=== PATIENT | female | born 1965 | race Caucasian/White ===

== ENCOUNTER 2016-10-05 08:03 | Day surgery (SDC) | payer BC ==
[2016-09-30 12:12] VITALS: BMI 24.7
[2016-10-05 08:35] VITALS: RESP 16; TEMP 97.7
[2016-10-05] MEDS ORDERED: LIDOCAINE 1% 20 ML VIAL (10MG/ML) FOR IV START SQ ONE (08:35)
[2016-10-05] MEDS ORDERED: LACTATED RINGERS 1,000 ML IV ONE (08:36)
[2016-10-05] MEDS ORDERED: MIDAZOLAM 2 MG/2 ML VIAL ONE (09:13)
[2016-10-05] MEDS ORDERED: TRIAMCINOLONE ACETONIDE 40 MG/ML 1 ML VIAL ONE (09:13)
[2016-10-05] MEDS ORDERED: BUPIVACAINE (PF) 0.75% 30 ML VIAL ONE (09:13)
[2016-10-05] MEDS ORDERED: fentaNYL (PF) 50 MCG/ML 2 ML AMP ONE (09:13)
[2016-10-05] MEDS ORDERED: IOHEXOL 180 MG/ML 1 ML ML ONE (09:13)
[2016-10-05] MEDS ORDERED: IV FLUID CONTINUATION 1,000 ML IV ONE ×2 (09:46)
--- NOTE | 2016-10-05 10:03 | FL ---
EXAMINATION TYPE: FL guided pain mgmt statistic DATE OF EXAM: 10/05/2016 9:46 AM HISTORY: Flouroscopy time 16 seconds of fluoroscopy provided. IMPRESSION: 1. Fluoroscopy time.
[2016-10-05 10:07] VITALS: BP 130/81; PULSE 67
--- NOTE | 2016-10-05 12:09 | P.PCN ---
Date of Procedure: 10/05/16 Procedure(s) Performed: PROCEDURE: Bilateral shoulder joint ( intra-articular ) steroid injection under fluoroscopy PREOPERATIVE DIAGNOSIS: Bilateral shoulder arthralgia POSTOPERATIVE DIAGNOSIS: Bilateral shoulder arth ANESTHESIA: Conscious sedation. Versed 2 mg and fentanyl 100 g EBL: None. COMPLICATIONS: None. IV FLUIDS: 100 ml of Normal Saline PROCEDURE INDICATION: Bilateral shoulder pain unresponsive to conservative treatment, patient had excellent pain relief after the steroid injection in the joint done in the past PROCEDURE DESCRIPTION: The patient was seen and identified in the preoperative area. Risks, benefits, complications, and alternatives were discussed with the patient. The patient agreed to proceed with the procedure and signed the consent. The patient was placed in the prone position on the procedure table and the right shoulder was prepped and draped in the usual sterile fashion. We used sterile gloves for the procedure. The medial joint space was identified by fluoroscopy. Block solution was prepared with 40 mg of Kenalog in 5 mL of 0.75% bupivacaine preservative-free. A 22-gauge needle was advanced through the aforementioned site into the intraarticular space, and after negative aspiration , 5 mL of block solution was injected. This same procedure was repeated for the left joint , and after we finish injection in both joints the Skin was cleansed, and bandage was applied. DISPOSITION / PLANS: The patient was taken back to recovery room in a stable position. . Patient was discharged from the recovery room, accompanied by an adult, after meeting discharge criteria. Home discharge instructions were given to the patient. The patient was reexamined prior to discharge. The patient will schedule a follow up visit in the clinic in 2-4 weeks.
== END 2016-10-05 10:18 | disposition home or self-care (01) ==
LOC: ORPAIN 08:03
PROVIDERS: ATTEND Specialist
DX: M25.512 Pain in left shoulder (principal); M25.511 Pain in right shoulder; Z88.0 Allergy status to penicillin
CPT/HCPCS: 20610; J2250; J3301; Q9965; J3010

== ENCOUNTER → 2016-12-08 | Outpatient (CLI) | payer BC ==
[2016-12-08 11:53] VITALS: BP 118/66; PULSE 74; RESP 16; TEMP 98
--- NOTE | 2016-12-08 12:18 | P.PN ---
Progress Note - Text Patient returns for followup for chronic back and shoulder pain with some back pain radiating to legs. Patient recently underwent shoulder bursa injection, which gave her little to no relief. Patient previously underwent bilateral shoulder joint injection in August 2015 which began to wear off approximately two months ago. Patient continues on tramadol and Zanaflex medications for pain with some relief. Patient states that Zanaflex is making her sleepy and is not helping with pain. Today, pt denies new-onset weakness, bowel/bladder incontinence, or any other signs or symptoms of cauda equina syndrome. There are no signs of acute intoxication, and no indications of medication diversion or overuse. In addition to above, 13-point review of systems is also negative for chest pain , shortness of breath, changes in vision, changes in hearing, new onset weakness , abdominal pain, diarrhea, extreme fatigue, malaise, fever, skin changes, homicidal or suicidal ideation, or bowel or bladder incontinence. Vital Signs: Reviewed in EMR Gen: WDWN, AAOx3, NAD HEENT: NCAT, EOMI, hearing grossly normal Pulm: resp unlabored Abd: soft, NT, ND Neck: supple, trachea midline Upper extremity: decreased shoulder abduction ROM bilateral secondary to pain ROM in flexion lumbar spine: reduced ROM in extension lumbar spine: reduced Lumbar paravertebral tenderness: + Facet loading: ++ bilateral SI joint tenderness: + David's test: + Straight leg raise: neg bilateral Neuro: CN II-XII grossly intact, muscle strength lower extremities PRESERVED Imaging: Reviewed in EMR Assessment: 1. shoulder OA 2. lumbar spondylosis without myelopathy 3. chronic pain syndrome Plan: 1. Explanation: Opioid and psychological risk scores were reviewed. Diagnoses , prognoses, and multiple treatment options including but not limited to physical therapy, interventional therapies, adjuvant medical therapies, narcotic medication therapies, and surgery were discussed with the patient and all questions were answered to the patient's satisfaction. 2. Opioid agreement: Patient has previously signed narcotic agreement, and was orally counseled to not overuse, abuse, divert, or cell medications, and to take them as prescribed by only 1 healthcare provider. The patient was also counseled to store opioid medications in a safe and preferably locked location. Patient was also counseled against driving while using narcotic medications and also to not use alcohol or any illicit or recreational drugs. The patient verbalized understanding that lack of compliance with any of the above and likely result in failure to renew narcotic prescriptions, possible discharge from the clinic, and possible legal ramifications thereafter if indicated. 3. Counseling: The patient was counseled extensively on BODY MASS INDEX, EXERCISE. Specifically, the patient was instructed regarding the importance of weight loss and exercise in the context of both chronic pain and overall health. 4. Procedures: bilateral glenohumeral joint injection at next visit 5. Consultations: None 6. Investigations: repeat UDS today; previous UDS in 08/2016 was + for [place], which we do not prescribe 7. Medications: tramadol #60 with no refills, start baclofen 5 mg BID with no refills; stop Zanaflex 8. Disposition: f/u for procedure as scheduled; at injection visit, please check UDS result from 12/08/16 PQRS measures: 1-Patient's medications are documented in the chart. 2-Tobacco use is negative, counseling given 3-Patient has not had a pneumococcal vaccine. 4-Advanced care planning discussed, patient unable to give. 5-Opioid contract previously signed with the patient. 6-Pain positive, follow-up visit or procedure scheduled 7-Patient's blood pressure measured and documented, and patient will follow up with the primary care due to hypertension. 8-Patient's weight was measured, and body mass index ABOVE the normal limits, and counseling was done. Patient instructed to follow up with PCP. 9-Patient WAS NOT identified as an unhealthy alcohol user.
== END | disposition home or self-care (01) ==
LOC: PNWHC3 11:23
PROVIDERS: ATTEND Anesthesiology
DX: M47.816 Spondylosis without myelopathy or radiculopathy, lumbar region (principal); M19.019 Primary osteoarthritis, unspecified shoulder; G89.4 Chronic pain syndrome; Z79.891 Long term (current) use of opiate analgesic
CPT/HCPCS: 80307; 80373; 99211

== ENCOUNTER 2016-12-14 09:10 | Day surgery (SDC) | payer BC ==
[2016-12-10 15:14] VITALS: BMI 25.5
[~2016-12-14 09:10] MED LIST: LACTATED RINGERS 1,000 ML IV SCH
[2016-12-14 10:28] VITALS: RESP 16; TEMP 96.5
[2016-12-14] MEDS ORDERED: LIDOCAINE 1% 20 ML VIAL (10MG/ML) FOR IV START INTRADERMA ONE (10:33)
[2016-12-14] MEDS ORDERED: MIDAZOLAM 2 MG/2 ML VIAL ONE (10:50)
[2016-12-14] MEDS ORDERED: TRIAMCINOLONE ACETONIDE 40 MG/ML 1 ML VIAL ONE (10:50)
[2016-12-14] MEDS ORDERED: IOHEXOL 180 MG/ML 1 ML ML ONE (10:50)
[2016-12-14] MEDS ORDERED: BUPIVACAINE (PF) 0.5% 30 ML VIAL ONE (10:50)
[2016-12-14] MEDS ORDERED: fentaNYL (PF) 50 MCG/ML 2 ML AMP ONE (10:50)
--- NOTE | 2016-12-14 11:14 | P.PCN ---
Date of Procedure: 12/14/16 Procedure(s) Performed: PREOPERATIVE DIAGNOSIS : 1- bilateral glenohumeral joint osteoarthritis POSTOPERATIVE DIAGNOSIS: 1- same as preoperative diagnoses . PROCEDURE: Bilateral glenohumeral joint steroid injection under fluoroscopy guidance ANESTHESIA: Local with 1% lidocaine 4 ml ; IV sedation with Versed 2 mg and Fentanyl 100 mcg. EBL: Minimal COMPLICATION: None. IV FLUIDS: 100 mL of normal saline. PROCEDURE INDICATION: Chronic shoulder joint pain secondary to osteoarthritis , unresponsive to conservative treatment. PROCEDURE DESCRIPTION: the patient was seen and identified in the preop holding area , risks and benefits and possible complications of the procedure and alternative were discussed with the patient, and the patient agreed to proceed with the procedure and signed the consent IV was started and vital signs monitored during the procedure and fluoroscopy was used to maximize the benefit and accuracy of the needle placement, and sedation was given to decrease patient anxiety, patient was taken to the procedure room and placed in prone position vital signs monitored in the back prepped with chlorhexidine X3 then under strict sterile technique, local infiltration of the skin and subcutaneous tissue with lidocaine 1% 2 mL given the location of the right glenohumeral joint, then after that 25-gauge Quincke-type spinal needle advanced slowly under fluoroscopy and placed in the right glenohumeral joint space , then needle placement confirmed with injection of Omnipaque 180 mg per mL 2 mL injected and confirmed the needle placement in the joint space then after negative aspiration and absence of paresthesia 5 ML of Marcaine 0.5% preservative-free mixed with 40 mg of Kenalog injected in the right glenohumeral humeral joint space, and the needle removed intact , and the same procedure was done for the left side. Glenohumeral joint At the end of the procedure and the needles removed and a bandage applied after the skin was cleaned the cleaning solution patient taken to recovery room in stable condition and monitors in the recovery room for 20-30 minutes and discharged home in stable condition after discharge criteria met and patient will follow up with the pain clinic in 2-4 weeks
[2016-12-14] MEDS ORDERED: IV FLUID CONTINUATION 1,000 ML IV ONE (11:18)
[2016-12-14 11:36] VITALS: PULSE 72
[2016-12-14 11:47] VITALS: BP 115/75
--- NOTE | 2016-12-14 12:10 | FL ---
EXAMINATION TYPE: FL guided pain mgmt statistic DATE OF EXAM: 12/14/2016 12:04 PM HISTORY: Pain dr. hester supervised use of rosa isela for a alba shoulder steroid inj 11 secs and 2 paper images
== END 2016-12-14 12:02 | disposition home or self-care (01) ==
LOC: ORPAIN 09:10
PROVIDERS: ATTEND Specialist
DX: M19.011 Primary osteoarthritis, right shoulder (principal); M19.012 Primary osteoarthritis, left shoulder; Z88.0 Allergy status to penicillin
CPT/HCPCS: 99152; 77002; 20610; J2250; J3301; Q9965; J3010

== ENCOUNTER → 2017-08-18 | Outpatient (CLI) | payer BC ==
--- NOTE | 2017-08-22 09:46 | MM ---
Reason for exam: screening (asymptomatic). Last mammogram was performed 1 year and 2 months ago. History: Patient is postmenopausal. Family history of breast cancer in paternal grandmother and premenopausal breast cancer in mother at age 40. Benign excisional biopsy of the right breast, 2004. Pre-pectoral saline implants in both breasts, 2002. Took hormonal contraceptives for 17 years beginning at age 17. Physical Findings: A clinical breast exam by your physician is recommended on an annual basis and results should be correlated with mammographic findings. MG Screening Mammo Implant/CAD Bilateral CC, MLO, and ID view(s) were taken. Prior study comparison: June 22, 2016, bilateral MG screening mammo implant/CAD. June 12, 2015, bilateral MG work up mamm w CAD BILAT. The breast tissue is extremely dense which could obscure a lesion on mammography. Bilateral breast prothesis. ASSESSMENT: Benign, BI-RAD 2 RECOMMENDATION: Routine screening mammogram of both breasts in 1 year.
== END | disposition home or self-care (01) ==
LOC: RADMAMWWP 12:38
PROVIDERS: ATTEND Family Medicine
DX: Z12.31 Encounter for screening mammogram for malignant neoplasm of breast (principal); Z80.3 Family history of malignant neoplasm of breast

== ENCOUNTER → 2018-05-24 | Outpatient (CLI) | payer OTHER ==
--- NOTE | 2018-05-24 08:17 | MR ---
EXAMINATION TYPE: MR cervical spine wo con DATE OF EXAM: 05/24/2018 COMPARISON: None HISTORY: 53-year-old female with cervical radiculopathy, Neck pain TECHNIQUE: Multiplanar, multisequence images of the cervical spine were acquired. FINDINGS: There is a 2.3 x 0.5 cm area of periarticular fluid along the right great atlantooccipital articulati on suggesting either joint effusion or ganglion cyst. No predental space widening or prevertebral soft tissue swelling. Moderate multilevel degenerative disc disease characterized by variable disc desiccation, mild disc s pace narrowing, and disc osteophyte complex formation. Alignment is maintained. No suspicious bone marrow replacement Bulky anterior endplate spondylosis particularly at C4-C5 and C5-C6 impressing on the posterior wall of the hypopharynx. Additional scattered ligamentum flavum thickening mid to lower cervical spine. At C2-C3, mild facet arthropathy without significant canal or foraminal stenosis. At C3-C4, mild facet and uncovertebral joint degenerative change with minimal narrowing of the left n euroforamen. No spinal canal stenosis. At C4-C5, broad-based disc osteophyte complex, ligamentum flavum thickening, uncovertebral joint and facet degenerative change. Changes result in mild right and moderate to severe left neuroforaminal st enosis. There is moderate narrowing of the spinal canal with abutment of both the dorsal and ventral cord but no cord compression. At C5-C6, broad-based disc osteophyte complex with uncovertebral joint and facet degenerative change as well as ligamentum flavum thickening moderate spinal canal stenosis with abutment and slight inden tation of the ventral cord at this level and moderate to severe left greater than right neuroforamina l stenosis. At C6-C7, broad-based disc osteophyte complex with uncovertebral joint and facet arthropathy as well as ligamentum flavum thickening. There is mild narrowing of the spinal canal and moderate right great er than left neuroforaminal stenosis. At C7-T1, facet arthropathy without canal or foraminal stenosis. There is ligamentum flavum thickening incidentally noted at T2-T3 without significant canal or forami nal stenosis. Normal course and signal intensity of the cervical cord. IMPRESSION: 1. Moderate disc/endplate degenerative change as well as hypertrophic facet and uncovertebral joint a rthropathy and ligamentum flavum thickening particularly in the mid to lower cervical spine. 2. Changes result in moderate narrowing of the spinal canal at C4-C5 and C5-C6 without cord compressi on or myelopathic cord signal change. Mild spinal canal stenosis at C6-C7. 3. Variable moderate to severe neuroforaminal stenoses as outlined above.
== END | disposition home or self-care (01) ==
LOC: RADMRIMAIN 05:58
PROVIDERS: ATTEND Family Medicine
DX: M48.02 Spinal stenosis, cervical region (principal); M99.71 Connective tissue and disc stenosis of intervertebral foramina of cervical region; M47.22 Other spondylosis with radiculopathy, cervical region; M46.92 Unspecified inflammatory spondylopathy, cervical region
CPT/HCPCS: 72141

== ENCOUNTER → 2018-11-16 | Outpatient (CLI) | payer OTHER ==
--- NOTE | 2018-11-16 15:09 | MM ---
Reason for exam: additional evaluation requested from prior study. Last mammogram was performed 1 year and 3 months ago. History: Patient is postmenopausal. Family history of breast cancer in paternal grandmother and premenopausal breast cancer in mother at age 40. Benign excisional biopsy of the right breast, 2004. Pre-pectoral saline implants in both breasts, 2002. Took hormonal contraceptives for 17 years beginning at age 17. Physical Findings: Nurse did not find any significant physical abnormalities on exam. MG Diag Mamm Implants CATE w CAD Bilateral CC and MLO view(s) were taken. Prior study comparison: August 18, 2017, bilateral MG screening mammo implant/CAD. June 22, 2016, bilateral MG screening mammo implant/CAD. The breast tissue is extremely dense which could obscure a lesion on mammography. There is no discrete abnormality. Bilateral breast implants, right subglandular left subpectoral. Some infolding redemonstrated but unchanged since 2016. These results were verbally communicated with the patient and result sheet given to the patient on 11/16/18. ASSESSMENT: Benign, BI-RAD 2 RECOMMENDATION: Breast MRI of both breasts. (Can be performed if there is concern for implant rupture) Routine screening mammogram of both breasts in 1 year.
== END ==
LOC: RADMAMWWP 12:05
PROVIDERS: ATTEND Family Medicine
DX: Z12.31 Encounter for screening mammogram for malignant neoplasm of breast (principal); Z80.3 Family history of malignant neoplasm of breast
CPT/HCPCS: 77066

== ENCOUNTER → 2018-12-13 | Outpatient (CLI) | payer OTHER ==
--- NOTE | 2018-12-13 08:10 | BMR ---
EXAMINATION TYPE: MR breast BILAT wo/w con DATE OF EXAM: 12/13/2018 COMPARISON: Prior mammogram November 16, 2018 BI-RADS 2 HISTORY: Abnormal mammogram, Saline implants, rupture left breast, , palpable lump left breast for on e month per patient. CONTRAST: Multiplanar, multisequence images of the breasts were acquired utilizing 8 mL intravenous Gadavist ga dolinium contrast. TECHNIQUE: A series of fat and water weighted images in the long and short axis views of both breasts are obtained in conjunction with dynamic contrast MRI with subtraction technique. Three-dimensional and additional postprocessing imaging is created on independent workstation and reviewed during offi cial interpretation of this study. FINDINGS: Extremely dense fibroglandular tissue bilaterally is present. There is symmetric moderate t o marked background enhancement with areas of small nodular enhancement bilaterally suggesting adenos is, right greater than left. T2-weighted images show no significant cystic change. T1-weighted images show no suspicious fat-containing masses. No suspicious enhancing masses or pathologic enhancement i s identified bilaterally with particular attention to left breast as patient states palpable lump for one month time. With regards to the right breast there is redemonstration of subglandular type implant which maintain s normal contour without suspicious infolding or linguini sign. Saline type implant is noted. Implant shape is more elongated AP diameter versus opposite left breast. No concerning axillary adenopathy. Chest wall is intact. Left breast shows subpectoral implant without suspicious infolding. There is slightly lobulated conto ur. Left breast implant is more prominent in transverse dimension. No suspicious skin thickening is s een. Chest wall is intact. No suspicious axillary adenopathy is seen. IMPRESSION: No MRI evidence for invasive malignancy in either breast. No evidence for implant rupture bilaterally. BI-RADS 2 benign findings right breast BI-RADS 2 benign findings left breast. Recommendation: If true palpable abnormality left breast, advise targeted ultrasound evaluation.
== END | disposition home or self-care (01) ==
LOC: RADMRIMAIN 06:03
PROVIDERS: ATTEND Family Medicine
DX: Z09 Encounter for follow-up examination after completed treatment for conditions other than malignant neoplasm (principal); Z98.82 Breast implant status
CPT/HCPCS: C8908; A9585; 77049

== ENCOUNTER 2019-05-21 17:16 | Emergency (ER) | payer OTHER ==
[2019-05-21] MEDS ORDERED: KETOROLAC 30 MG/ML 1 ML VIAL IVP STA (18:26)
[2019-05-21] MEDS ORDERED: ONDANSETRON 4 MG/2 ML VIAL IVP STA (18:26)
--- NOTE | 2019-05-21 18:30 | ED ---
Abdominal Pain HPI - General Chief Complaint: Abdominal Pain Stated Complaint: POSS APPENDICITIS Time Seen by Provider: 05/21/19 18:16 Source: patient Mode of arrival: ambulatory Limitations: no limitations - History of Present Illness Initial Comments: Patient is a 54-year-old female presenting to emergency Department with a chief complaint of abdominal pain. Patient reports intermittent burning sensation in the right lower quadrant for approximately 2 weeks. Patient reports the symptoms have increased over the past day. Patient reports the pain does not radiate anywhere. Patient does report intermittent nausea as well but no vomiting or diarrhea. Patient reports that he bowel movements. Patient reports the pain is not related to by mouth intake. Patient denies any urinary or bowel symptoms. Patient denies vaginal discharge or bleeding. Patient denies any abdominal surgeries aside from tubal ligation 20 years ago. Patient denies t aking any medication to alleviate the symptoms. - Related Data Home Medications Medication Instructions Recorded Confirmed Melatonin 5 mg PO HS PRN 03/05/14 12/14/16 Lisinopril [Zestril] 5 mg PO DAILY 09/30/16 12/14/16 DULoxetine HCL [Cymbalta] 30 mg PO BID 12/10/16 12/14/16 Previous Rx's Medication Instructions Recorded Baclofen [Lioresal] 5 mg PO BID PRN #60 tablet 12/08/16 traMADol HCl [Ultram] 50 mg PO BID PRN #60 tab 12/08/16 Ondansetron Odt [Zofran Odt] 4 mg PO Q8HR PRN #10 tab 05/21/19 Allergies Allergy/AdvReac Type Severity Reaction Status Date / Time Penicillins Allergy Rash/Hives Verified 05/21/19 17:32 Review of Systems ROS Statement: Those systems with pertinent positive or pertinent negative responses have been documented in the HPI. ROS Other: All systems not noted in ROS Statement are negative. Past Medical History Past Medical History: Hypertension, Musculoskeletal Disorder Additional Past Medical History / Comment(s): hx heart murmur-no treatment for, disc problems in back, History of Any Multi-Drug Resistant Organisms: None Reported Past Surgical History: Breast Surgery, Orthopedic Surgery, Tubal Ligation, Uterine Ablation Additional Past Surgical History / Comment(s): [facility], breast implants, bunion surg, breast biopsy Past Anesthesia/Blood Transfusion Reactions: No Reported Reaction Past Psychological History: No Psychological Hx Reported Smoking Status: Former smoker - Past Family History Mother Family Medical History: No Reported History Father Family Medical History: Cancer General Exam Limitations: no limitations General appearance: alert, in no apparent distress Head exam: Present: atraumatic, normocephalic, normal inspection Eye exam: Present: normal appearance, PERRL, EOMI Pupils: Present: normal accommodation ENT exam: Present: normal exam, normal oropharynx, mucous membranes moist, TM's normal bilaterally, normal external ear exam Neck exam: Present: normal inspection, full ROM Respiratory exam: Present: normal lung sounds bilaterally Cardiovascular Exam: Present: regular rate, normal rhythm, normal heart sounds GI/Abdominal exam: Present: soft, tenderness (Right lower quadrant. Positive McBurney point tenderness. Negative Rovsing, negative obturator, negative psoas. Negative Guzman sign.), normal bowel sounds. Absent: distended, guarding, rebound, organomegaly, mass Extremities exam: Present: normal inspection, full ROM Back exam: Present: normal inspection, full ROM. Absent: CVA tenderness (R), CVA tenderness (L) Neurological exam: Present: alert, oriented X3 Psychiatric exam: Present: normal affect, normal mood Skin exam: Present: warm, intact, normal color Course Vital Signs 05/21/19 05/21/19 05/21/19 17:30 18:39 19:54 Temperature 97.8 F 97.9 F Pulse Rate 67 62 67 Respiratory 18 16 18 Rate Blood Pressure 165/91 126/69 O2 Sat by Pulse 100 99 98 Oximetry Medical Decision Making - Medical Decision Making Patient is a 54-year-old feel presenting to emergency Department with a chief complaint of abdominal pain. Patient reports right lower quadrant abdominal pain with a burning sensation. Patient reports over the last few days it has increased in severity. Patient denies decreased appetite. Patient only has McBurney point tenderness and no other signs indicating appendicitis. Labs are unremarkable. KUB is unremarkable. No CT is warranted at this time. Patient advised to return to emergency department if she develops any fever or increased abdominal pain changes in appetite. Patient initially given Zofran with minimal improvement in nausea. Patient given Reglan which she reports has helped the nausea. Patient also given analgesia which helped resolve the pain. Strict return parameters were thoroughly discussed with patient was understanding and agreeable. Patient advised to follow-up with primary care. Case discussed with physician. - Lab Data Result diagrams: 05/21/19 18:21 05/21/19 18:21 Lab Results 05/21/19 05/21/19 05/21/19 Range/Units 18:21 18:21 18:21 WBC 6.7 (3.8-10.6) k/uL RBC 4.96 (3.80-5.40) m/uL Hgb 13.7 (11.4-16.0) gm/dL Hct 41.9 (34.0-46.0) % MCV 84.5 (80.0-100.0) fL MCH 27.6 (25.0-35.0) pg MCHC 32.7 (31.0-37.0) g/dL RDW 13.7 (11.5-15.5) % Plt Count 280 (150-450) k/uL Neutrophils % 65 % Lymphocytes % 22 % Monocytes % 6 % Eosinophils % 2 % Basophils % 2 % Neutrophils # 4.4 (1.3-7.7) k/uL Lymphocytes # 1.5 (1.0-4.8) k/uL Monocytes # 0.4 (0-1.0) k/uL Eosinophils # 0.1 (0-0.7) k/uL Basophils # 0.1 (0-0.2) k/uL Sodium 140 (137-145) mmol/L Potassium 4.9 (3.5-5.1) mmol/L Chloride 104 (98-107) mmol/L Carbon Dioxide 27 (22-30) mmol/L Anion Gap 9 mmol/L BUN 20 H (7-17) mg/dL Creatinine 0.71 (0.52-1.04) mg/dL Est GFR (CKD-EPI)AfAm >90 (>60 ml/min/1.73 sqM) Est GFR (CKD-EPI)NonAf >90 (>60 ml/min/1.73 sqM) Glucose 85 (74-99) mg/dL Calcium 9.7 (8.4-10.2) mg/dL Total Bilirubin 0.5 (0.2-1.3) mg/dL AST 36 (14-36) U/L ALT 12 (9-52) U/L Alkaline Phosphatase 56 (38-126) U/L Total Protein 8.1 (6.3-8.2) g/dL Albumin 4.6 (3.5-5.0) g/dL Amylase 55 (30-110) U/L Lipase 48 (23-300) U/L Urine Color Yellow Urine Appearance Clear (Clear) Urine pH 6.0 (5.0-8.0) Ur Specific [place] 1.016 (1.001-1.035) Urine Protein Negative (Negative) Urine Glucose (UA) Negative (Negative) Urine Ketones Negative (Negative) Urine Blood Trace H (Negative) Urine Nitrite Negative (Negative) Urine Bilirubin Negative (Negative) Urine Urobilinogen <2.0 (<2.0) mg/dL Ur Leukocyte Esterase Large H (Negative) Urine RBC 8 H (0-5) /hpf Urine WBC 13 H (0-5) /hpf Ur Squamous Epith Cells 1 (0-4) /hpf Urine Mucus Rare H (None) /hpf Disposition Clinical Impression: Abdominal pain, Nausea Disposition: HOME SELF-CARE Condition: Stable Additional Instructions: Please see prescribe medication as directed. Please follow up with primary care. Please return to emergency department if symptoms worsen. Prescriptions: Ondansetron Odt [Zofran Odt] 4 mg PO Q8HR PRN #10 tab PRN Reason: Nausea Is patient prescribed a controlled substance at d/c from ED?: No Referrals: Nicole Lala DO [Primary Care Provider] - 1-2 days Time of Disposition: 19:42
[2019-05-21 18:41] LABS: Basophils # (A) 0.1 k/uL (0-0.2); Basophils % (A) 2 %; Eosinophils # (A) 0.1 k/uL (0-0.7); Eosinophils % (A) 2 %; HCT 41.9 % (34.0-46.0); HGB 13.7 gm/dL (11.4-16.0); Lymphocytes # (A) 1.5 k/uL (1.0-4.8); Lymphocytes % (A) 22 %; MCH 27.6 pg (25.0-35.0); MCHC 32.7 g/dL (31.0-37.0); MCV 84.5 fL (80.0-100.0); Mean Platelet Volume 6.4; Monocytes # (A) 0.4 k/uL (0-1.0); Monocytes % (A) 6 %; Neutrophils # (A) 4.4 k/uL (1.3-7.7); Neutrophils % (A) 65 %; Platelet Count 280 k/uL (150-450); RBC 4.96 m/uL (3.80-5.40); RDW 13.7 % (11.5-15.5); WBC 6.7 k/uL (3.8-10.6)
[2019-05-21 18:45] LABS: Appearance,Urine Clear (Clear); Bilirubin,Urine Negative (Negative); Blood,Urine Trace (Negative); Color,Urine Yellow; Glucose,Urine (UA) Negative (Negative); Ketones,Urine Negative (Negative); Leukocyte Esterase,Urine Large (Negative); Mucus,Urine Rare /hpf; Nitrite,Urine Negative (Negative); Protein,Urine Negative (Negative); RBC,Urine 8 /hpf (0-5); Specific Gravity,Urine 1.016 (1.001-1.035); Squamous Epithelial Cell,Urine 1 /hpf (0-4); Urobilinogen,Urine <2.0 mg/dL (<2.0); WBC,Urine 13 /hpf (0-5)
[2019-05-21 18:49] LABS: ALT 12 U/L (9-52); AST 36 U/L (14-36); African American GFR (CKD) >90 (>60 ml/min/1.73 sqM); Albumin 4.6 g/dL (3.5-5.0); Alkaline Phosphatase 56 U/L (38-126); Amylase 55 U/L (30-110); Anion Gap 9 mmol/L; Blood Urea Nitrogen 20 mg/dL (7-17); Calcium 9.7 mg/dL (8.4-10.2); Carbon Dioxide 27 mmol/L (22-30); Chloride 104 mmol/L (98-107); Glucose 85 mg/dL (74-99); Potassium 4.9 mmol/L (3.5-5.1); Sodium 140 mmol/L (137-145); Total Bilirubin 0.5 mg/dL (0.2-1.3); Total Protein 8.1 g/dL (6.3-8.2)
--- NOTE | 2019-05-21 18:56 | XR ---
EXAMINATION TYPE: XR KUB DATE OF EXAM: 05/21/2019 COMPARISON: NONE HISTORY: Abdominal pain TECHNIQUE: 2 views upright FINDINGS: There is no sign of intestinal obstruction or pneumoperitoneum. Fecal pattern is normal. Georgette ng bases are clear. There are no pathologic calcifications over the kidneys. IMPRESSION: Nonacute abdomen.
[2019-05-21] MEDS ORDERED: METOCLOPRAMIDE 5 MG/ML 2 ML VIAL IVP STA (19:41)
[2019-05-21 19:55] VITALS: BP 126/69; PULSE 67; RESP 18; TEMP 97.9
== END 2019-05-21 20:19 | disposition home or self-care (01) ==
LOC: EC 17:16
DX: R10.31 Right lower quadrant pain (principal); R11.0 Nausea; I10 Essential (primary) hypertension; Z98.51 Tubal ligation status; Z98.890 Other specified postprocedural states; Z87.891 Personal history of nicotine dependence; Z79.899 Other long term (current) drug therapy; Z88.0 Allergy status to penicillin
CPT/HCPCS: 36415; 80053; 82150; 83690; 85025; 81001; 74018; 99284; 96374; 96375 ×2; J2765; J2405; J1885

== ENCOUNTER → 2020-02-29 | Outpatient (CLI) | payer OTHER ==
--- NOTE | 2020-03-03 10:59 | MM ---
Reason for exam: screening (asymptomatic). Last mammogram was performed 1 year and 3 months ago. History: Patient is postmenopausal. Family history of breast cancer in paternal grandmother and premenopausal breast cancer in mother at age 40. Benign excisional biopsy of the right breast, 2004. Pre-pectoral saline implants in both breasts, 2002. Took hormonal contraceptives for 17 years beginning at age 17. Physical Findings: A clinical breast exam by your physician is recommended on an annual basis and results should be correlated with mammographic findings. MG Screening Mammo Implant/CAD Bilateral CC, MLO, and ID view(s) were taken. Prior study comparison: November 16, 2018, bilateral MG diag mamm implants CATE w CAD. August 18, 2017, bilateral MG screening mammo implant/CAD. The breast tissue is heterogeneously dense. This may lower the sensitivity of mammography. Bilateral saline implants. This appears prepectoral on the right and retorpectoral on the left. Superior asymmetric density right MLO view. ASSESSMENT: Incomplete: need additional imaging evaluation, BI-RAD 0 RECOMMENDATION: Special view mammogram of the right breast. (3D) If lesion persists on supplemental views, image directed ultrasound is recommended. [facility] will attempt to contact patient to return for supplemental views and ultrasound if indicated.
== END | disposition home or self-care (01) ==
LOC: RADMAMWWP 15:26
PROVIDERS: ATTEND Family Medicine
DX: Z12.31 Encounter for screening mammogram for malignant neoplasm of breast (principal); R92.8 Other abnormal and inconclusive findings on diagnostic imaging of breast; Z80.3 Family history of malignant neoplasm of breast
CPT/HCPCS: 77067

== ENCOUNTER → 2020-03-13 | Outpatient (CLI) | payer OTHER ==
--- NOTE | 2020-03-14 08:23 | MM ---
Reason for exam: additional evaluation requested from abnormal screening. Last mammogram was performed less than 1 month ago. History: Patient is postmenopausal. Family history of breast cancer in paternal grandmother and premenopausal breast cancer in mother at age 40. Benign excisional biopsy of the right breast, 2004. Pre-pectoral saline implants in both breasts, 2002. Took hormonal contraceptives for 17 years beginning at age 17. Physical Findings: A clinical breast exam by your physician is recommended on an annual basis and results should be correlated with mammographic findings. MG Work Up Mamm w CAD RT LM and spot compression MLO view(s) were taken of the right breast. Prior study comparison: February 29, 2020, bilateral MG screening mammo implant/CAD. November 16, 2018, bilateral MG diag mamm implants CATE w CAD. The breast tissue is heterogeneously dense. This may lower the sensitivity of mammography. Prepectoral saline implant on the right. The superior asymmetric density becomes less defined. The tech reports an adjacent scar. These results were verbally communicated with the patient and result sheet given to the patient on 03/13/20. ASSESSMENT: Probably benign, BI-RAD 3 RECOMMENDATION: Follow-up diagnostic mammogram of the right breast in 6 months.
== END | disposition home or self-care (01) ==
LOC: RADMAMWWP 14:24
PROVIDERS: ATTEND Family Medicine
DX: R92.8 Other abnormal and inconclusive findings on diagnostic imaging of breast (principal)
CPT/HCPCS: 77065

== ENCOUNTER → 2020-09-15 | Outpatient (CLI) | payer OTHER ==
--- NOTE | 2020-09-16 08:02 | MM ---
Reason for exam: follow-up at short interval from prior study. Last mammogram was performed 6 months ago. History: Patient is postmenopausal. Family history of breast cancer in paternal grandmother and premenopausal breast cancer in mother at age 40. Benign excisional biopsy of the right breast, 2004. Pre-pectoral saline implants in both breasts, 2002. Took hormonal contraceptives for 17 years beginning at age 17. Physical Findings: Nurse did not find any significant physical abnormalities on exam. MG Diag Mamm Implant RT w CAD CC, MLO, and ID view(s) were taken of the right breast. Prior study comparison: March 13, 2020, right breast MG work up mamm w CAD RT. February 29, 2020, bilateral MG screening mammo implant/CAD. The breast tissue is extremely dense which could obscure a lesion on mammography. Asymmetric breast tissue right posterior outer aspect. There is no discrete abnormality. Right breast implant. These results were verbally communicated with the patient and result sheet given to the patient on 09/15/20. ASSESSMENT: Benign, BI-RAD 2 RECOMMENDATION: Return to routine screening mammogram schedule for both breasts.
== END | disposition home or self-care (01) ==
LOC: RADMAMWWP 14:39
PROVIDERS: ATTEND Family Medicine
DX: R92.8 Other abnormal and inconclusive findings on diagnostic imaging of breast (principal); Z98.82 Breast implant status
CPT/HCPCS: 77065

== ENCOUNTER → 2021-11-12 | Outpatient (CLI) | payer OTHER ==
--- NOTE | 2021-11-13 11:44 | MM ---
Reason for exam: screening (asymptomatic). Last mammogram was performed 1 year and 2 months ago. History: Patient is postmenopausal. Family history of breast cancer in paternal grandmother and premenopausal breast cancer in mother at age 40. Benign excisional biopsy of the right breast, 2004. Pre-pectoral saline implants in both breasts, 2002. Took hormonal contraceptives for 17 years beginning at age 17. Physical Findings: A clinical breast exam by your physician is recommended on an annual basis and results should be correlated with mammographic findings. MG 3D Screen Mammo Imp/Cad Bilateral CC, MLO, and ID view(s) were taken. XCCL view(s) were taken of the right breast. Prior study comparison: September 15, 2020, right breast MG diag mamm implant RT w CAD. March 13, 2020, right breast MG work up mamm w CAD RT. The breast tissue is heterogeneously dense. This may lower the sensitivity of mammography. There is no discrete abnormality. Bilateral implants are intact. No significant changes when compared with prior studies. ASSESSMENT: Benign, BI-RAD 2 RECOMMENDATION: Routine screening mammogram of both breasts in 1 year.
== END | disposition home or self-care (01) ==
LOC: RADMAMWWP 13:33
PROVIDERS: ATTEND Family Medicine
DX: Z12.31 Encounter for screening mammogram for malignant neoplasm of breast (principal); Z80.3 Family history of malignant neoplasm of breast
CPT/HCPCS: 77063; 77067

== ENCOUNTER → 2022-06-11 | Outpatient (CLI) | payer OTHER ==
--- NOTE | 2022-06-11 13:25 | CT ---
EXAMINATION TYPE: CT abdomen pelvis wo con CT DLP: 852 mGycm, Automated exposure control for dose reduction was used. DATE OF EXAM: 06/11/2022 1:06 PM COMPARISON: KUB radiograph 05/21/2019 CLINICAL INDICATION:Female, 57 years old with history of R10.9 abd pain, N20.0; Bilateral flank pain TECHNIQUE: Standard CT of the abdomen and pelvis without IV or oral contrast. Lack of IV or oral co ntrast limits evaluation of solid and hollow organ viscera. Coronal and sagittal reformats were perfo rmed. FINDINGS: LOWER CHEST: The visualized lungs are clear. Partial visualization of bilateral breast prosthesis. ABDOMEN LIVER: Unremarkable noncontrast appearance. GALLBLADDER AND BILE DUCTS: Contracted gallbladder. No biliary ductal dilatation. PANCREAS: No pancreatic duct dilatation. Punctate calcification within the pancreatic body parenchyma . No surrounding inflammatory changes or fluid collections. SPLEEN: Unremarkable noncontrast appearance. ADRENAL GLANDS: Unremarkable noncontrast appearance. KIDNEYS AND URETERS: No evidence of hydronephrosis. Nonobstructive bilateral renal calculi. Largest i n the right superior pole measures 5 mm. Additional 2 mm calculus within the inferior pole of the rig ht kidney. 3 mm nonobstructive calculus within the mid left kidney. Additional 6 mm cortical calculus within the superior pole left kidney of indeterminate clinical significance. No definitive ureteral calculi. No perinephric fat stranding or fluid collections. PELVIS BLADDER: Incompletely distended but grossly unremarkable. REPRODUCTIVE: Unremarkable. ABDOMEN & PELVIS STOMACH AND BOWEL: Stomach and duodenum are unremarkable. Distal colonic diverticulosis without evide nce for acute diverticulitis. The appendix is within normal limits. No evidence of bowel obstruction. PERITONEUM: No evidence of pneumoperitoneum or free fluid. VASCULATURE: No evidence of aortic aneurysm. MUSCULOSKELETAL: No acute osseous abnormalities. No aggressive osseous lesions. Multilevel Schmorl's nodes. Mild retrolisthesis of L5 on S1. No pars defects. LYMPH NODES: No gross evidence for lymphadenopathy. SOFT TISSUE/ABDOMINAL WALL: Small fat filled umbilical hernia. IMPRESSION: 1. No evidence for obstruction uropathy. 2. Nonobstructive bilateral renal calculi. 3. Colonic diverticulosis without evidence for acute diverticulitis.
== END | disposition home or self-care (01) ==
LOC: RADCTMAIN 12:26
PROVIDERS: ATTEND Family Medicine
DX: N20.0 Calculus of kidney (principal); K57.30 Diverticulosis of large intestine without perforation or abscess without bleeding
CPT/HCPCS: 74176

== ENCOUNTER → 2022-06-29 | Outpatient (CLI) | payer OTHER ==
--- NOTE | 2022-06-29 14:14 | XR ---
EXAMINATION TYPE: XR KUB DATE OF EXAM: 06/29/2022 Comparison: CT 06/11/2022 Clinical History: 57-year-old female N20.0 calculus Findings: Large stool burden. Correlate for constipation. Nonobstructive bowel gas pattern. Extensive bowel con tent largely obscures the kidneys and any potential suspicious calcification. Impression: Large stool burden; correlate for constipation.
== END | disposition home or self-care (01) ==
LOC: RADXRMAIN 12:24
PROVIDERS: ATTEND Urology
DX: N20.0 Calculus of kidney (principal); R19.5 Other fecal abnormalities
CPT/HCPCS: 74018

== ENCOUNTER → 2022-08-11 | Outpatient (CLI) | payer OTHER ==
--- NOTE | 2022-08-11 14:07 | XR ---
EXAMINATION TYPE: XR KUB DATE OF EXAM: 08/11/2022 1:27 PM CLINICAL HISTORY: Calculus of kidney. TECHNIQUE: Two supine KUB images of the abdomen are obtained. COMPARISON: Abdominal x-ray June 29, 2022. FINDINGS: Scattered gas is seen in non-distended small bowel loops. Gas and fecal material is seen in non-distended colon. Mild to moderate thecal prominence in the right and left colon. Gas redemonstra padmini in nondistended rectum and bowel seen in nondistended stomach. No definite nephrolithiasis. Multi level spurring in the spine redemonstrated. IMPRESSION: No definite nephrolithiasis. No significant change from recent x-ray.
== END | disposition home or self-care (01) ==
LOC: RADXRMAIN 13:16
DX: N20.0 Calculus of kidney (principal)
CPT/HCPCS: 74018

== ENCOUNTER 2022-12-20 07:02 | Emergency (ER) | payer OTHER ==
[2022-12-20 07:10] VITALS: TEMP 97.6
[2022-12-20] MEDS ORDERED: KETOROLAC 15 MG/ML 1 ML VIAL IVP STA (07:26)
[2022-12-20] MEDS ORDERED: SODIUM CHLORIDE 0.9% 1,000 ML IV STA (07:26)
--- NOTE | 2022-12-20 07:56 | ED ---
General Adult HPI - General Chief complaint: Back Pain/Injury Stated complaint: Right side pain Time Seen by Provider: 12/20/22 07:12 Source: patient, RN notes reviewed Mode of arrival: ambulatory Limitations: no limitations - History of Present Illness Initial comments: 57-year-old female presents emergency Department with chief complaint of right-sided flank pain. Patient states that pain started a few days ago has worsened. Patient states that makes it feel better or worse at this time. She states she does have a history kidney stones but states she did not pass 1. Patient denies any dysuria, hematuria this admits mild nausea without vomiting. Denies any fevers or chills. - Related Data Home Medications Medication Instructions Recorded Confirmed Melatonin 5 mg PO HS PRN 03/05/14 12/14/16 lisinopriL [Zestril] 5 mg PO DAILY 09/30/16 12/14/16 DULoxetine HCL [Cymbalta] 30 mg PO BID 12/10/16 12/14/16 Previous Rx's Medication Instructions Recorded Baclofen [Lioresal] 5 mg PO BID PRN #60 tablet 12/08/16 traMADol HCl [Ultram] 50 mg PO BID PRN #60 tab 12/08/16 Ondansetron Odt [Zofran Odt] 4 mg PO Q8HR PRN #10 tab 05/21/19 Ketorolac [Toradol] 10 mg PO Q8HR #15 tab 12/20/22 bisacodyL [Dulcolax] 10 mg PO ONCE #10 tab 12/20/22 Allergies Allergy/AdvReac Type Severity Reaction Status Date / Time Penicillins Allergy Rash/Hives Verified 10/11/22 11:27 Review of Systems ROS Statement: Those systems with pertinent positive or pertinent negative responses have been documented in the HPI. ROS Other: All systems not noted in ROS Statement are negative. Past Medical History Past Medical History: Hypertension, Musculoskeletal Disorder Additional Past Medical History / Comment(s): hx heart murmur-no treatment for, disc problems in back, History of Any Multi-Drug Resistant Organisms: None Reported Past Surgical History: Breast Surgery, Orthopedic Surgery, Tubal Ligation, Uterine Ablation Additional Past Surgical History / Comment(s): [facility], breast implants, bunion surg, breast biopsy Past Anesthesia/Blood Transfusion Reactions: No Reported Reaction Past Psychological History: No Psychological Hx Reported Smoking Status: Former smoker, Vaper Past Alcohol Use History: Rare Past Drug Use History: None Reported - Past Family History Mother Family Medical History: No Reported History Father Family Medical History: Cancer General Exam Limitations: no limitations General appearance: alert, in no apparent distress Head exam: Present: atraumatic, normocephalic, normal inspection Eye exam: Present: normal appearance, PERRL, EOMI. Absent: scleral icterus, conjunctival injection, periorbital swelling Respiratory exam: Present: normal lung sounds bilaterally. Absent: respiratory distress, wheezes, rales, rhonchi, stridor Cardiovascular Exam: Present: regular rate, normal rhythm, normal heart sounds. Absent: systolic murmur, diastolic murmur, rubs, gallop, clicks GI/Abdominal exam: Present: soft, tenderness, normal bowel sounds. Absent: distended, guarding, rebound, rigid Back exam: Present: CVA tenderness (R) Neurological exam: Present: alert, oriented X3 Skin exam: Present: warm, dry, intact, normal color. Absent: rash Course Vital Signs 12/20/22 12/20/22 07:06 10:22 Temperature 97.6 F Pulse Rate 70 68 Respiratory 18 16 Rate Blood Pressure 155/86 120/68 O2 Sat by Pulse 98 95 Oximetry Medical Decision Making - Medical Decision Making Was pt. sent in by a medical professional or institution (, PA, JOB INTERVIEWER, urgent care, hospital, or prison...) When possible be specific @ -No Did you speak to anyone other than the patient for history (EMS, parent, family, police, friend...)? What history was obtained from this source @ -No Did you review nursing and triage notes (agree or disagree)? Why? @ -I reviewed and agree with nursing and triage notes Were old charts reviewed (outside hosp., previous admission, EMS record, old EKG, old radiological studies, urgent care reports/EKG's, prison records)? Report findings @ -No old charts were reviewed Differential Diagnosis (chest pain, altered mental status, abdominal pain women, abdominal pain men, vaginal bleeding, weakness, fever, dyspnea, syncope, headache, dizziness, GI bleed, back pain, seizure, CVA, palpatations, mental health, musculoskeletal)? @ -Differential Abdominal Pain Women: Appendicitis, Cholecystitis, diverticulosis, ischemic bowel, pancreatitis, hepatitis, UTI, gastroenteritis, AAA, incarcerated hernia, bowel obstruction, constipation, inflammatory bowel, hepatitis, peptic ulcer disease, splenic infarction, perforated viscus, vulvitis, ovarian torsion, PID, kidney stone, placenta abruption, this is not meant to be an all-inclusive list EKG interpreted by me (3pts min.). @ -None X-rays interpreted by me (1pt min.). @ -None done CT interpreted by me (1pt min.). @ -C to have pelvis did not reveal any evidence of ureteral calculi does show bilateral kidney stones, moderate constipation U/S interpreted by me (1pt. min.). @ -None done What testing was considered but not performed or refused? (CT, X-rays, U/S, labs)? Why? @ -None What meds were considered but not given or refused? Why? @ -None Did you discuss the management of the patient with other professionals (professionals i.e. , PA, JOB INTERVIEWER, lab, RT, psych nurse, social work instructor, curator of photography and prints, teacher, credit officer, supervisor case loading)? Give summary @ -No Was smoking cessation discussed for >3mins.? @ -No Was critical care preformed (if so, how long)? @ -No Were there social determinants of health that impacted care today? How? (Homelessness, low income, unemployed, alcoholism, drug addiction, transportation, low edu. Level, literacy, decrease access to med. care, longterm, rehab)? @ -No Was there de-escalation of care discussed even if they declined (Discuss DNR or withdrawal of care, Hospice)? DNR status @ -No What co-morbidities impacted this encounter? (DM, HTN, Smoking, COPD, CAD, Cancer, CVA, ARF, Chemo, Hep., AIDS, mental health diagnosis, sleep apnea, morbid obesity)? @ -None Was patient admitted / discharged? Hospital course, mention meds given and route, prescriptions, significant lab abnormalities, going to OR and other pertinent info. @ -Discharge patient CT does not show any evidence of kidney stone passing though she does have noted hematuria and symptoms consistent noted kidney stones bilaterally patient does have moderate constipation no other acute findings. Patient's symptoms were improved. Undiagnosed new problem with uncertain prognosis? @ -No Drug Therapy requiring intensive monitoring for toxicity (Heparin, Nitro, Insulin, Cardizem)? @ -No Were any procedures done? @ -No Diagnosis/symptom? @ -Flank pain, constipation Acute, or Chronic, or Acute on Chronic? @ -Acute Uncomplicated (without systemic symptoms) or Complicated (systemic symptoms)? @ -Uncomplicated Side effects of treatment? @ -No Exacerbation, Progression, or Severe Exacerbation? @ -No Poses a threat to life or bodily function? How? (Chest pain, [place], [place], pneumonia, PE, COPD, DKA, ARF, appy, cholecystitis, CVA, Diverticulitis, Homicidal, Suicidal, threat to staff... and all critical care pts) @ -No - Lab Data Result diagrams: 12/20/22 07:55 12/20/22 07:55 Lab Results 12/20/22 12/20/22 12/20/22 Range/Units 07:55 07:55 07:55 WBC 5.2 (3.8-10.6) k/uL RBC 4.79 (3.80-5.40) m/uL Hgb 13.5 (11.4-16.0) gm/dL Hct 41.1 (34.0-46.0) % MCV 85.7 (80.0-100.0) fL MCH 28.1 (25.0-35.0) pg MCHC 32.8 (31.0-37.0) g/dL RDW 13.3 (11.5-15.5) % Plt Count 227 (150-450) k/uL MPV 6.3 Neutrophils % 70 % Lymphocytes % 19 % Monocytes % 6 % Eosinophils % 2 % Basophils % 1 % Neutrophils # 3.7 (1.3-7.7) k/uL Lymphocytes # 1.0 (1.0-4.8) k/uL Monocytes # 0.3 (0-1.0) k/uL Eosinophils # 0.1 (0-0.7) k/uL Basophils # 0.0 (0-0.2) k/uL Sodium 138 (137-145) mmol/L Potassium 4.3 (3.5-5.1) mmol/L Chloride 105 (98-107) mmol/L Carbon Dioxide 30 (22-30) mmol/L Anion Gap 3 mmol/L BUN 19 H (7-17) mg/dL Creatinine 0.56 (0.52-1.04) mg/dL Est GFR (CKD-EPI)AfAm >90 (>60 ml/min/1.73 sqM) Est GFR (CKD-EPI)NonAf >90 (>60 ml/min/1.73 sqM) Glucose 103 H (74-99) mg/dL Calcium 8.7 (8.4-10.2) mg/dL Total Bilirubin 0.4 (0.2-1.3) mg/dL AST 32 (14-36) U/L ALT 24 (4-34) U/L Alkaline Phosphatase 66 (38-126) U/L Total Protein 6.8 (6.3-8.2) g/dL Albumin 3.8 (3.5-5.0) g/dL Lipase 430 H (23-300) U/L Urine Color Yellow Urine Appearance Clear (Clear) Urine pH 6.5 (5.0-8.0) Ur Specific [place] 1.022 (1.001-1.035) Urine Protein Trace H (Negative) Urine Glucose (UA) Negative (Negative) Urine Ketones Negative (Negative) Urine Blood Trace H (Negative) Urine Nitrite Negative (Negative) Urine Bilirubin Negative (Negative) Urine Urobilinogen <2.0 (<2.0) mg/dL Ur Leukocyte Esterase Small H (Negative) Urine RBC 8 H (0-5) /hpf Urine WBC 5 (0-5) /hpf Ur Squamous Epith Cells 4 (0-4) /hpf Hyaline Casts 1 (0-2) /lpf Urine Mucus Many H (None) /hpf Disposition Clinical Impression: Flank pain, Hematuria, Constipation Disposition: HOME SELF-CARE Condition: Stable Instructions (If sedation given, give patient instructions): Abdominal Pain (ED) Additional Instructions: Please return to the Emergency Department if symptoms worsen or any other concerns. Prescriptions: bisacodyL [Dulcolax] 10 mg PO ONCE #10 tab Ketorolac [Toradol] 10 mg PO Q8HR #15 tab Is patient prescribed a controlled substance at d/c from ED?: No Referrals: Nicole Lala DO [Primary Care Provider] - 1-2 days Time of Disposition: 10:14
[2022-12-20 08:06] LABS: Basophils % (A) 1 %; Eosinophils # (A) 0.1 k/uL (0-0.7); Eosinophils % (A) 2 %; HCT 41.1 % (34.0-46.0); HGB 13.5 gm/dL (11.4-16.0); Lymphocytes % (A) 19 %; MCH 28.1 pg (25.0-35.0); MCHC 32.8 g/dL (31.0-37.0); MCV 85.7 fL (80.0-100.0); Mean Platelet Volume 6.3; Monocytes # (A) 0.3 k/uL (0-1.0); Monocytes % (A) 6 %; Neutrophils # (A) 3.7 k/uL (1.3-7.7); Neutrophils % (A) 70 %; Platelet Count 227 k/uL (150-450); RBC 4.79 m/uL (3.80-5.40); RDW 13.3 % (11.5-15.5); WBC 5.2 k/uL (3.8-10.6)
[2022-12-20 08:18] LABS: ALT 24 U/L (4-34); African American GFR (CKD) >90 (>60 ml/min/1.73 sqM); Albumin 3.8 g/dL (3.5-5.0); Anion Gap 3 mmol/L; Blood Urea Nitrogen 19 mg/dL (7-17); Calcium 8.7 mg/dL (8.4-10.2); Carbon Dioxide 30 mmol/L (22-30); Chloride 105 mmol/L (98-107); Glucose 103 mg/dL (74-99); Lipase 430 U/L (23-300); Non-African American GFR(CKD) >90 (>60 ml/min/1.73 sqM); Sodium 138 mmol/L (137-145); Total Bilirubin 0.4 mg/dL (0.2-1.3); Total Protein 6.8 g/dL (6.3-8.2)
[2022-12-20 08:20] LABS: AST 32 U/L (14-36); Alkaline Phosphatase 66 U/L (38-126); Potassium 4.3 mmol/L (3.5-5.1)
--- NOTE | 2022-12-20 08:45 | CT ---
EXAMINATION TYPE: CT abdomen pelvis wo con CT DLP: 644.8 mGycm, Automated exposure control for dose reduction was used. DATE OF EXAM: 12/20/2022 8:09 AM COMPARISON: CT abdomen pelvis most recent from 06/11/2022 CLINICAL INDICATION:Female, 57 years old with history of right flank pain; right flank pain TECHNIQUE: Axial CT of the abdomen and pelvis. Sagittal and coronal reformats were created on a [employer] workstation. Contrast used: None Oral contrast used: without Oral Contrast FINDINGS: LOWER CHEST: Unremarkable ABDOMEN LIVER: Unremarkable GALLBLADDER AND BILE DUCTS: Unremarkable. PANCREAS: Unremarkable. SPLEEN: Unremarkable. ADRENAL GLANDS: Unremarkable. KIDNEYS AND URETERS: Nonobstructing left 2 mm calculus. No evidence of left hydronephrosis. Nonobstru cting right 2 mm calculus. Left superior renal 3 mm probable cortical proteinaceous cyst. Additional high-density cysts measuring 11 mm noted. PELVIS BLADDER: Unremarkable REPRODUCTIVE: Unremarkable. ABDOMEN & PELVIS STOMACH AND BOWEL: Large stool burden throughout the colon. There is redundant colon throughout the a bdomen. Small bowel feces seen throughout the abdomen. No evidence of bowel obstruction. The appendix is normal PERITONEUM/RETROPERITONEUM: No evidence of pneumoperitoneum or free fluid. VASCULATURE: No evidence of aortic aneurysm. MUSCULOSKELETAL: No acute osseous abnormalities LYMPH NODES: No gross evidence for lymphadenopathy. SOFT TISSUE/ABDOMINAL WALL: Fat-containing umbilical hernia. IMPRESSION: 1. No definitive acute process to spine the patient's pain. There is normal appendix. Large stool bu rden throughout the colon and redundant colon. 2. Small bowel feces correlate for fecal stasis. 3. Bilateral nonobstructing renal calculi. 4. Higher density cysts on the left which could be further characterized with MRI renal mass protoco l.
[2022-12-20 10:01] LABS: Appearance,Urine Clear (Clear); Bilirubin,Urine Negative (Negative); Blood,Urine Trace (Negative); Color,Urine Yellow; Glucose,Urine (UA) Negative (Negative); Hyaline Casts,Urine 1 /lpf (0-2); Ketones,Urine Negative (Negative); Leukocyte Esterase,Urine Small (Negative); Mucus,Urine Many /hpf; Nitrite,Urine Negative (Negative); PH, Urine 6.5 (5.0-8.0); Protein,Urine Trace (Negative); RBC,Urine 8 /hpf (0-5); Specific Gravity,Urine 1.022 (1.001-1.035); Squamous Epithelial Cell,Urine 4 /hpf (0-4); Urobilinogen,Urine <2.0 mg/dL (<2.0); WBC,Urine 5 /hpf (0-5)
[2022-12-20 10:31] VITALS: BP 120/68; PULSE 68; RESP 16
== END 2022-12-20 10:28 | disposition home or self-care (01) ==
LOC: EC 07:02
DX: R31.9 Hematuria, unspecified (principal); K59.00 Constipation, unspecified; R10.9 Unspecified abdominal pain; I10 Essential (primary) hypertension; F17.290 Nicotine dependence, other tobacco product, uncomplicated; Z88.0 Allergy status to penicillin
CPT/HCPCS: 36415; 80053; 83690; 85025; 81001; 74176; 99284; 96374; 96361; J1885

== ENCOUNTER → 2023-02-14 | Outpatient (CLI) | payer OTHER ==
--- NOTE | 2023-02-15 11:12 | MM ---
Reason for Exam: Screening (asymptomatic). Last mammogram was performed 1 year(s) and 3 month(s) ago. Patient History: Menarche at age 9. First Full-Term at age 25. Postmenopausal. Hormonal Contraceptives, starting at age 17 for 17 years. 2004, Benign Excisional Biopsy on the right side. 2002, Bilateral Implants. Paternal grandmother had breast cancer. Mother had breast cancer, age 40. Risk Values: Aneta 5 year model risk: 3.5%. NCI Lifetime model risk: 18.1%. Prior Study Comparison: 03/13/2020 Right Diagnostic Mammogram, [facility]. 09/15/2020 Right Diagnostic Mammogram, [facility]. 11/12/2021 Bilateral Screening Mammogram, [facility]. Tissue Density: The breast tissue is heterogeneously dense. This may lower the sensitivity of mammography. Findings: Analyzed By CAD. There is no suspicious group of microcalcifications or new suspicious mass in either breast. Bilateral implants are intact. Overall Assessment: Benign, BI-RAD 2 Management: Screening Mammogram of both breasts in 1 year. A clinical breast exam by your physician is recommended on an annual basis and results should be correlated with mammographic findings. Note on Aneta scores and lifetime risk: 1. A Aneta score greater than 3% is considered moderate risk. If this is the case, consider specialist referral to assess eligibility for a risk reducing agent. If overall lifetime risk for the development of breast cancer is 20% or higher, the patient may qualify for future screening with alternating mammogram and breast MRI. Electronically signed and approved by: Rainer Rodrigues D.O.
== END | disposition home or self-care (01) ==
LOC: RADMAMWWP 15:39
PROVIDERS: ATTEND Family Medicine
DX: Z12.31 Encounter for screening mammogram for malignant neoplasm of breast (principal); Z78.0 Asymptomatic menopausal state; Z80.3 Family history of malignant neoplasm of breast
CPT/HCPCS: 77063; 77067

== ENCOUNTER → 2023-07-27 | Outpatient (CLI) | payer OTHER ==
--- NOTE | 2023-07-27 14:59 | P.SLEEP ---
History of Present Illness DATE: 07/27/2023 CONSULTATION/NEW PATIENT EVALUATION HISTORY OF PRESENT ILLNESS/SLEEP-WAKE EVALUATION: 58-year-old lady had been ev aluated in the sleep center for significant excessive daytime sleepiness and possible obstructive sleep apnea hypopnea syndrome. SLEEP SCHEDULE: Usually sleep schedule from 89 PM until 12:303:30 AM. FALLING ASLEEP: Usually no significant problems with the falling asleep. DURING SLEEP: Patient has multiple awakenings from sleep up to 5 times. Patient sleeps by himself so no clear information about possibility of snoring or breathing changes. Positive history of nocturia 2 during the night. No history of hypnogogical hallucinations, sleep paralysis, or cataplexy. DURING THE DAY/WAKE STATE: In the morning patient wake up tired, has difficulties to place attention, falling asleep during the day. Patient has problems with memory, concentration and irritability. Atwood sleepiness scale is in extremely high range of 21. Patient may take naps once a day usually about noon time. PAST MEDICAL HISTORY: Back problems. PAST SURGICAL HISTORY: Tonsillectomy, uterus ablation. MEDICATIONS: duloxetine, Terry. SOCIAL HISTORY: Positive for smoking for about 20 pack years quit 7 years ago, alcohol consumption none. FAMILY HISTORY: Cancer. REVIEW OF SYSTEMS: Multiple awakenings from sleep, significant excessive daytime sleepiness. No fevers. No double vision. No recent chest pain. No shortness of breath. No abdominal pain. No bleeding episodes. No blood in urine. No seizure episodes. PHYSICAL EXAMINATION: GENERAL: A pleasant patient without any distress. VITAL SIGNS: BP 143/84, HR 76, RR 12, weight 186.8 pounds, height 5 foot 8.25 inches, body mass index 28.1. HEENT: PERRLA, EOMI. Evaluation of oropharynx showed tongue protrudes midline, low position of soft palate Mallampati 2-3. NECK: Supple. No JVD. Thyroid is not palpable. 14.5 inches in circumference. LUNGS: Clear to percussion and to auscultation. Good air exchange. No wheezing or rhonchi. HEART: S1, S2 regular. No murmurs, gallops or rubs. ABDOMEN: Soft and nontender. Bowel sounds are present. No organomegaly appreciated. EXTREMITIES: No clubbing or cyanosis. DATA ANALYTICS ARCHITECT: Awake, alert, and oriented x3. Cranial nerves 2 to 7 intact. There is no fasciculation or atrophy noted. No focal deficits observed. ASSESSMENT: 1. Significant excessive daytime sleepiness with [place]wood Sleepiness Scale 21. Possible narcolepsy type II. 2. Multiple awakenings from sleep up to 5 times. Possibly obstructive sleep ap naldo hypopnea syndrome. 3. Hypertension in the office. 4. Back problems. 5 status post tonsillectomy. 6 . Status post uterus ablation. 7. Status post breast implants. PLAN: 1. Polysomnography for evaluation of patient's breathing during sleep. Multiple sleep latency test if sleep study will be negative for obstructive sleep apnea hypopnea syndrome. 2. Following plan after reading sleep study. 3. Pr Aftereferable position during sleep on the side. 4. No driving if patient feels any sleepiness. Patient is aware of civil and criminal liability for unsafe driving. 5. Sleep hygiene with regular sleep time for at least 7.5-8 hours. Thank you very much for referring this patient for consultation. Sincerely, Angel Ambrose MD, PhD, FAASM. Diplomat of [place] [employer], Sleep Medicine Board by [place] [employer] [place] [employer] Warrant Officer of [facility] [place] Past Medical History Past Medical History: Hypertension, Musculoskeletal Disorder Additional Past Medical History / Comment(s): hx heart murmur-no treatment for, disc problems in back, History of Any Multi-Drug Resistant Organisms: None Reported Past Surgical History: Breast Surgery, Orthopedic Surgery, Tubal Ligation, Uterine Ablation Additional Past Surgical History / Comment(s): [facility], breast implants, bunion surg, breast biopsy Past Anesthesia/Blood Transfusion Reactions: No Reported Reaction Past Psychological History: No Psychological Hx Reported Smoking Status: Former smoker, Vaper Past Alcohol Use History: Rare Past Drug Use History: None Reported - Past Family History Mother Family Medical History: No Reported History Father Family Medical History: Cancer Medications and Allergies Home Medications Medication Instructions Recorded Confirmed Type Melatonin 5 mg PO HS PRN 03/05/14 12/14/16 History lisinopriL [Zestril] 5 mg PO DAILY 09/30/16 12/14/16 History Baclofen [Lioresal] 5 mg PO BID PRN #60 tablet 12/08/16 12/14/16 Rx traMADol HCl [Ultram] 50 mg PO BID PRN #60 tab 12/08/16 12/14/16 Rx DULoxetine HCL [Cymbalta] 30 mg PO BID 12/10/16 12/14/16 History Ondansetron Odt [Zofran Odt] 4 mg PO Q8HR PRN #10 tab 05/21/19 Rx Ketorolac [Toradol] 10 mg PO Q8HR #15 tab 12/20/22 Rx bisacodyL [Dulcolax] 10 mg PO ONCE #10 tab 12/20/22 Rx Allergies Allergy/AdvReac Type Severity Reaction Status Date / Time Penicillins Allergy Rash/Hives Verified 10/11/22 11:27 Sleep Note - Sleep Note Sleep Note: Temperature: Pulse Rate: Respiratory Rate: Blood Pressure: SpO2: Height: Weight: BMI: Neck Circumference:
== END ==
LOC: 3 N SLEEP 13:42
PROVIDERS: ATTEND Internal Medicine
DX: I10 Essential (primary) hypertension (principal); M51.9 Unspecified thoracic, thoracolumbar and lumbosacral intervertebral disc disorder; M54.9 Dorsalgia, unspecified; Z98.890 Other specified postprocedural states; Z90.89 Acquired absence of other organs; Z98.82 Breast implant status; Z87.891 Personal history of nicotine dependence; Z88.0 Allergy status to penicillin; Z79.899 Other long term (current) drug therapy
CPT/HCPCS: 99211

== ENCOUNTER 2023-11-04 09:14 | Day surgery (SDC) | payer OTHER ==
[2023-11-03 08:53] VITALS: BMI 26.9
[2023-11-04] MEDS: LACTATED RINGERS 1,000 ML IV SCH (09:36)
[2023-11-04 10:15] VITALS: TEMP 99
[2023-11-04] MEDS ORDERED: LIDOCAINE 1% INJ 10MG/ML (20 ML MDV) ONE (10:39)
[2023-11-04] MEDS ORDERED: PROPOFOL 10 MG/ML 20 ML VIAL IV ONE (10:39)
--- NOTE | 2023-11-04 10:59 | P.PCN ---
Date of Procedure: 11/04/23 Procedure(s) Performed: BRIEF HISTORY: Patient is a 58-year-old pleasant white female scheduled for an elective colonoscopy as a part of screening for colon cancer. PROCEDURE PERFORMED: Colonoscopy. PREOPERATIVE DIAGNOSIS: Screening for colon cancer. IV sedation per Anesthesia. PROCEDURE: After informed consent was obtained, the patient, was brought into the endoscopy unit. IV sedation was administered by Anesthesia under continuous monitoring. Digital rectal examination was normal. Initially the Olympus CF-160 flexible video colonoscope was then inserted in the rectum, gradually advanced into the cecum without any difficulty. Careful examination was performed as the scope was gradually being withdrawn. Ileocecal valve and the appendiceal orifice were visualized and appeared normal. Prep was poor and several areas of the colon.. Mucosa of the cecum, ascending colon, transverse colon, descending colon, sigmoid colon, and rectum appeared normal. Retroflexion was performed in the rectum and no lesions were seen. The patient tolerated the procedure well. IMPRESSION: Normal-appearing colon from rectum to cecum with no evidence of colorectal neoplasia Scattered sigmoid diverticulosis Poor prep in several areas of the colon. RECOMMENDATIONS: Findings of this examination were discussed with the patient as well as her family. She was advised to have a repeat screening colonoscopy in 5 years was of the poor prep...
[2023-11-04 11:35] VITALS: BP 148/81; PULSE 69; RESP 16
== END 2023-11-04 11:48 | disposition home or self-care (01) ==
LOC: ORWHC2ENDO 09:14
PROVIDERS: ATTEND Internal Medicine Gastroenterology
DX: Z12.11 Encounter for screening for malignant neoplasm of colon (principal); K57.30 Diverticulosis of large intestine without perforation or abscess without bleeding; I10 Essential (primary) hypertension; Z88.0 Allergy status to penicillin; F32.A Depression, unspecified; Z98.51 Tubal ligation status; Z98.890 Other specified postprocedural states; Z79.899 Other long term (current) drug therapy
CPT/HCPCS: G0121; J2001; J2704; 45378

== ENCOUNTER → 2024-02-21 | Outpatient (CLI) | payer OTHER ==
--- NOTE | 2024-02-22 10:10 | MM ---
Reason for Exam: Screening (asymptomatic). Last screening mammogram was performed 12 month(s) ago. Patient History: Menarche at age 9. First Full-Term at age 25. Postmenopausal. Hormonal Contraceptives, starting at age 17 for 17 years. 2004, Benign Excisional Biopsy on the right side. 2002, Bilateral Implants. Paternal grandmother had breast cancer. Mother had breast cancer, age 40. Risk Values: Aneta 5 year model risk: 3.7%. NCI Lifetime model risk: 17.6%. Prior Study Comparison: 09/15/2020 Right Diagnostic Mammogram, [facility]. 11/12/2021 Bilateral Screening Mammogram, [facility]. 02/14/2023 Bilateral MG 3D screen mammo imp/cad., [facility]. Tissue Density: The breasts are heterogeneously dense, which may obscure small masses. Findings: Analyzed By CAD. There is no suspicious group of microcalcifications or new suspicious mass in either breast. Bilateral implants are intact. Overall Assessment: Benign, BI-RAD 2 Management: Screening Mammogram of both breasts in 1 year. . Patient should continue monthly self-breast exams. A clinical breast exam by your physician is recommended on an annual basis. This exam should not preclude additional follow-up of suspicious palpable abnormalities. Note on Aneta scores and lifetime risk: 1. A Aneta score greater than 3% is considered moderate risk. If this is the case, consider specialist referral to assess eligibility for a risk reducing agent. 2. If overall lifetime risk for the development of breast cancer is 20% or higher, the patient may qualify for future screening with alternating mammogram and breast MRI. Electronically signed and approved by: Bennett Santamaria M.D. Radiologis
--- NOTE | 2024-02-22 17:42 | BD ---
EXAMINATION TYPE: Axial Bone Density DATE OF EXAM: 02/21/2024 CLINICAL HISTORY: 59 years old Female. ICD-10 CODE: Z78.0 ASYM MENOPAUSAL STATE Height: 68.2 in Weight: 180 lbs FRAX RISK QUESTIONS: History of Fracture in Adulthood: rt wrist age 41 RISK FACTORS HISTORY OF: History of Wrist Fracture: rt wrist age 41 EXAM MEASUREMENTS: Bone mineral densitometry was performed using the [employer] System. Bone mineral density as measured about the Lumbar spine is: ----- L1-L4(G/cm2): 1.206 T Score Values are as follows: ----- L1: -0.9 ----- L2: -0.5 ----- L3: 1.2 ----- L4: 0.7 ----- L1-L4: 0.2 Z Score Values are as follows: ----- L1: -0.3 ----- L2: 0.2 ----- L3: 1.9 ----- L4: 1.3 ----- L1-L4: 0.9 Bone mineral density has: Decreased -11.5% since study of: 06/04/2015 Bone mineral density about the R hip (g/cm2): 0.805 Bone mineral density about the L hip (g/cm2): 0.838 T Score values are as follows: -----R Neck: -2.5 -----L Neck: -1.9 -----R Total: -1.6 -----L Total: -1.3 Z Score values are as follows: -----R Neck: -1.7 -----L Neck: -1.1 -----R Total: -1.1 -----L Total: -0.8 Bone mineral density has: Decreased -10.7% since study of: 06/04/2015 FRAX%s: The graph provided illustrates a 20.0% chance for a major osteoporotic fx and a 4.1% chance f or the hips probability for fx in 10 years time. IMPRESSION: Osteopenia (T Score between -2.5 and -1). There is slightly increased risk of fracture and the patient may be considered for treatment. Re-Screen 2-5 years. NOTE: T-SCORE=SD OF THE YOUNG ADULT MEAN.
== END | disposition home or self-care (01) ==
LOC: RADMAMWWP 06:57
PROVIDERS: ATTEND Family Medicine
DX: Z12.31 Encounter for screening mammogram for malignant neoplasm of breast (principal); M81.0 Age-related osteoporosis without current pathological fracture; M85.89 Other specified disorders of bone density and structure, multiple sites; Z80.3 Family history of malignant neoplasm of breast; Z78.0 Asymptomatic menopausal state
CPT/HCPCS: 77063; 77067; 77080

== ENCOUNTER 2024-02-28 18:58 | Outpatient (CLI) | payer OTHER ==
--- NOTE | 2024-02-29 10:52 | P.PCN ---
Description of Procedure: POLYSOMNOGRAPHY REPORT PROCEDURE(S)/DATE(S): Polysomnography 02/28/2024 CLINICAL: Patient has been seen in the sleep center for evaluation of obstructive sleep apnea-hypopnea syndrome. Please see my consultation. Sleep study has been done for evaluation of patient breathing during the sleep. PROCEDURE: The standard montage for clinical polysomnography included the electroencephalogram, the electrooculogram, the mentalis surface electromyography and Lead II cardiography. The respiratory battery consisted of measurements of nasal/buccal air flow, pressure transducer measurements from nose, thoracic and/or abdominal effort and intercostal surface electromyography. Video monitoring has been done to check for any parasomnia events. Nocturnal oxyhemoglobin saturations were obtained by finger oximetry. Step-gamboa titration with positive airway pressure was utilized to control the respiratory events, if necessary. RESULTS: During the diagnostic sleep study sleep efficiency was in high range 95.5%. Latency to sleep onset was short 5.5 min. Sleep architecture showed stage NI was extremely short 0.4%, Delta sleep was increased to 38.6%, REM sleep was decreased to 12.7%. Respiratory channel showed 4 obstructive apneas, 0 mixed apneas, 2 central apneas, 99 hypopneas with lowest oxygen level 85%. Total apnea hypopnea index was 15.2. Heart rate was in the range between 66 and 74, average 69. EMG showed 0 periodic limb movements per hour . IMPRESSIONS: 1. Moderate obstructive sleep apnea hypopnea syndrome. 2. No significant periodic limb movements have been documented. Please see other impressions from consultation PLAN: 1. The patient will have PAP titration for correction of respiratory abnormalities during the sleep. 2. Watching weight. 3. Sleep hygiene with regular time in bed for at least 7-1/2 hours. 4. No driving if feeling sleepiness. Thank you very much for allowing me to participate in the management of your patient. Sincerely, Angel Ambrose MD, PhD, FAASM. Diplomat of [place] [employer] Medicine, Sleep Medicine Board by [place] [employer] Medicine Launching Pad Mechanic of [facility] [place]
== END 2024-02-29 05:45 | disposition home or self-care (01) ==
LOC: 3 N SLEEP 18:58
PROVIDERS: ATTEND Internal Medicine
DX: G47.33 Obstructive sleep apnea (adult) (pediatric) (principal); G47.419 Narcolepsy without cataplexy; Z88.0 Allergy status to penicillin; Z87.891 Personal history of nicotine dependence
CPT/HCPCS: 95810

== ENCOUNTER 2024-04-04 19:19 | Outpatient (CLI) | payer OTHER ==
--- NOTE | 2024-04-27 15:57 | SLS ---
SLEEP STUDY NAME OF PROCEDURE: CPAP titration. CLINICAL: Titration with positive air pressure has been done for correction of respiratory abnormalities during sleep. DESCRIPTION OF PROCEDURE: The standard montage for clinical polysomnography included the electroencephalogram, the electrocardiogram, the mentalis surface electromyography and Lead II cardiography. The respiratory battery consisted of measurements of nasal /buccal air flow, pressure transducer measurements from the nose, thoracic and /or abdominal effort and intercostal surface electromyography. Video monitoring has been done to check for any parasomnia events. Nocturnal oxyhemoglobin saturations were obtained by finger oximetry. Step-gamboa titration with positive airway pressure was utilized to control respiratory events. Raw data of sleep recording has been reviewed and is adequate. RESULTS: Sleep efficiency was slightly decreased to 85.5%. Latency to sleep onset was in acceptable range 25 minutes. Sleep architecture showed normal amount of stage N1 5.1%, delta sleep was decreased to 2.6%, and REM sleep was decreased to 16.4%. CPAP titration done up to the pressure 8 cm of water. Apnea-hypopnea index reduced to normal range 3.3 per hour with oxygen level above 91%. EMG did not show any significant periodic limb movements. Heart rate in the range between 62 and 68, average 65. IMPRESSION: 1. Moderate obstructive sleep apnea-hypopnea syndrome, on control with CPAP at the pressure of 7 cm of water. 2. No significant periodic limb movements have been documented during titration. Please see other impressions from consultation. PLAN: 1. The patient will have treatment with positive air pressure equipment and should use it every night for the whole night. 2. Watching weight. 3. Sleep hygiene with regular time in bed for at least 8 hours. 4. I will see the patient for followup visit to evaluate clinical response on treatment, compliance with treatment, and make any necessary adjustments related to mask fitting, pressure, and humidification. Thank you very much for allowing me to participate in the management of your patient. Sincerely, Angel Ambrose MD, PhD, FAASM Diplomat of [place] [employer] Special[employer] Sleep Medicine Board of [place] Board of Internal Medicine Body Worker of [facility] [place] [email or web address] / AILEENN: [phone] / ELVIRA
== END 2024-04-05 04:25 | disposition home or self-care (01) ==
LOC: 3 N SLEEP 19:19
PROVIDERS: ATTEND Internal Medicine
DX: G47.33 Obstructive sleep apnea (adult) (pediatric) (principal); G47.10 Hypersomnia, unspecified; G47.419 Narcolepsy without cataplexy; Z88.0 Allergy status to penicillin; Z87.891 Personal history of nicotine dependence
CPT/HCPCS: 95811

== ENCOUNTER 2024-05-05 18:05 | Emergency (ER) | payer OTHER ==
[2024-05-05 18:24] VITALS: TEMP 97.6
[2024-05-05] MEDS: KETOROLAC 15 MG/ML 1 ML VIAL IM STA (19:01)
[2024-05-05] MEDS: MORPHINE SULFATE 4 MG/ML SYRINGE IM STA (19:02)
--- NOTE | 2024-05-05 19:17 | XR ---
EXAMINATION TYPE: XR ankle complete RT DATE OF EXAM: 05/05/2024 6:54 PM CLINICAL INDICATION: Female, 59 years old with history of fall; [facility] COMPARISON: None TECHNIQUE: XR ankle complete RT; ankle is imaged in frontal, lateral and oblique projections. FINDINGS/IMPRESSION: 1. Acute fracture of the distal fibula with extension into the distal tibiofibular joint. There is a ssociated soft tissue swelling. No additional fractures. 2. Wires/postsurgical change near the base of the first metatarsal.
[2024-05-05] MEDS: HYDROmorphone 1 MG/ML 1 ML SYRINGE IM STA (19:45)
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
[2024-05-05 20:21] VITALS: BP 148/86; PULSE 70; RESP 18
--- NOTE | 2024-05-06 14:25 | ED ---
Disposition Clinical Impression: Fracture of distal fibula Disposition: HOME SELF-CARE Condition: Good Instructions (If sedation given, give patient instructions): Ankle Fracture (ED) Additional Instructions: Follow-up with orthopedics. Report back to ER with any new or worsening symptoms. Take Motrin and Tylenol as needed for pain control. Rest, ice, elevate the extremity. Remain nonweightbearing, use your crutches. Prescriptions: HYDROcodone/APAP 5-325MG [Rulo 5-325] 1 tab PO Q6HR PRN 3 Days #12 tab PRN Reason: Severe Pain Is patient prescribed a controlled substance at d/c from ED?: Yes If prescribed controlled substance>3 days was MAPS reviewed?: Prescribed <3 Days Referrals: Sachin Tinajero DO [Doctor of Osteopathic Medicine] - 1-2 days Nicole Lala DO [Primary Care Provider] - 1-2 days
== END 2024-05-05 21:05 | disposition home or self-care (01) ==
LOC: EC 18:05
CPT/HCPCS: 96372; 99283

== ENCOUNTER 2024-05-10 12:00 | Day surgery (SDC) | payer OTHER ==
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
[2024-05-10] MEDS: IV FLUID CONTINUATION 1,000 ML IV ONE (13:50)
[2024-05-10] MEDS: LACTATED RINGERS 1,000 ML BAG IV STA (14:00)
[2024-05-10] MEDS: ONDANSETRON 4 MG/2 ML VIAL IVP STA (14:00)
[2024-05-10] MEDS: DEXAMETHASONE SOD PHOSPHATE 4 MG/ML 1 ML VIAL IVP STA (14:01)
[2024-05-10] MEDS: MIDAZOLAM 2 MG/2 ML VIAL IV ONE (14:09)
[2024-05-10] MEDS ORDERED: ePHEDrine 50 MG/ML 1 ML VIAL ONE (15:13)
[2024-05-10] MEDS ORDERED: PROPOFOL 10 MG/ML 20 ML VIAL IV ONE (15:13)
[2024-05-10] MEDS ORDERED: SODIUM CHLORIDE 0.9% (PF) 10 ML VIAL ONE (15:13)
[2024-05-10] MEDS ORDERED: fentaNYL (PF) 50 MCG/ML 2 ML AMP ONE (15:13)
[2024-05-10] MEDS ORDERED: ROPIVACAINE 5 MG/ML 30 ML VIAL ONE (15:13)
[2024-05-10] MEDS ORDERED: DEXAMETHASONE SOD PHOSPHATE 4 MG/ML 1 ML VIAL ONE (15:13)
[2024-05-10] MEDS ORDERED: LIDOCAINE 1% INJ 10MG/ML (20 ML MDV) ONE (15:13)
[2024-05-10] MEDS ORDERED: PHENYLEPHRINE-0.9% NACL SYG 1,000 MCG/10 ML SYRINGE ONE (15:13)
--- NOTE | 2024-05-10 15:37 | P.ANPRN ---
Procedure Note - Anesthesia - Nerve Block Performed Right Popliteal Single Time Out Performed: Yes Date of Procedure: 05/10/24 Procedure Start Time: 14:00 Procedure Stop Time: 14:10 Location of Patient: Phase I Indication: Acute Post-Operative Pain, Analgesia, Dx/Pain Location (Right Ankle Pain ), Requested by Surgeon Sedation Type: Sedate with meaningful contact maintained Preparation: Sterile Prep Position: Left Lateral Catheter: None Needle Types: Pajunk Needle Gauge: 21 Ultrasound used to visualize needle placement: Yes Ultrasound used to observe medication spread: Yes (No intraneural injection ) Injectate: 0.5% Ropivacaine (see comment for volume) (20ml with 4mg dexamethasone) Blood Aspirated: No Pain Paresthesia on Injection Noted: No Resistance on Injection: Normal Image Stored and Saved: Yes Events: Uneventful and Well Tolerated
--- NOTE | 2024-05-10 15:55 | P.ANPRN ---
Procedure Note - Anesthesia - Nerve Block Performed Right Adductor Canal Single Time Out Performed: Yes Date of Procedure: 05/10/24 Procedure Start Time: 14:12 Procedure Stop Time: 14:15 Location of Patient: Phase I Indication: Acute Post-Operative Pain, Analgesia, Dx/Pain Location (Right Ankle Pain ), Requested by Surgeon Sedation Type: Sedate with meaningful contact maintained Preparation: Sterile Prep Position: Supine Catheter: None Needle Types: Pajunk Needle Gauge: 21 Injectate: Other (see comment) (15ml 0.25% Ropivacaine) Blood Aspirated: No Pain Paresthesia on Injection Noted: No Resistance on Injection: Normal Image Stored and Saved: Yes Events: Uneventful and Well Tolerated
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
[2024-05-10 16:34] VITALS: TEMP 97.3
--- NOTE | 2024-05-10 16:50 | XR ---
Fluoroscopy INDICATION: Pain FINDINGS: Fluoroscopy time: 1.05 minutes Total dose area product (DAP) in uGy*m?, mGy*cm? (or similar): 0.5655 Images obtained: 7. IMPRESSION: 1. Documentation of fluoroscopy.
[2024-05-10 17:29] VITALS: BP 134/66; PULSE 75; RESP 18
--- NOTE | 2024-06-02 12:59 | FL ---
Fluoroscopy INDICATION: Pain FINDINGS: Fluoroscopy time: 1.05 minutes Total dose area product (DAP) i n uGy*m?, mGy*cm? (or similar): 0.5655 Images obtained: 7. IMPRESSION: 1. Documentation of fluoroscopy. [facility], , 06/02/2024 12:57 PM
== END 2024-05-10 17:35 | disposition home or self-care (01) ==
LOC: OR 12:00
PROVIDERS: ATTEND Orthopaedic Surgery
DX: S82.61XA Displaced fracture of lateral malleolus of right fibula, initial encounter for closed fracture (principal); G89.18 Other acute postprocedural pain; I10 Essential (primary) hypertension; Z79.899 Other long term (current) drug therapy; Z87.891 Personal history of nicotine dependence; Z88.0 Allergy status to penicillin; X50.1XXA Overexertion from prolonged static or awkward postures, initial encounter; Y93.16 Activity, rowing, canoeing, kayaking, rafting and tubing; Y93.89 Activity, other specified; W19.XXXA Unspecified fall, initial encounter
CPT/HCPCS: 64445; 64447

== ENCOUNTER → 2024-08-09 | Outpatient (CLI) | payer OTHER ==
--- NOTE | 2024-08-09 15:27 | P.PROGSL ---
Subjective DATE: 08/09/2024 FOLLOW UP VISIT. Patient with obstructive sleep apnea hypopnea syndrome return to sleep center for follow-up visit. Recently patient had sleep study which documented obstructive sleep apnea hypopnea syndrome. Patient was initiated on PAP therapy and today is first visit after treatment was started. Patient was able to use PAP equipment only for several nights. She had bloody discharges from the nose. I explained to the patient results of sleep study in details. [place] sleepiness scale is still significantly increased to 16. I checked information from PAP unit. PAP unit pressure 5-9, average 8.0 cm H2O. Usage is 10% for more then 4 hours, average 3.25 hours per night. Leak is 23.8 l/m, which is in acceptable range. Apnea Hypopnea Index is increased to 8.8. MEDICATIONS: Please see below. During physical exam: GENERAL: A pleasant patient without any distress. VITAL SIGNS: Please see below, weight 184.0 pounds. HEENT: PERRLA, EOMI.low position of soft palate, Mallapati 23. NECK: Supple. No JVD. LUNGS: Clear to percussion and to auscultation. Good air exchange. No wheezing or rhonchi. HEART: S1, S2 regular. ABDOMEN: Soft and nontender.[] EXTREMITIES: No clubbing or cyanosis. YARN WEIGHER: Awake, alert, and oriented x3. No focal deficit. Impressions: 1. Obstructive sleep apnea-hypopnea syndrome. Patient has difficulties with usage of CPAP secondary to bloody discharges from the nose. 2. Hypertension in the office. 3. Back problems. 4. Status post tonsillectomy. 5. Status post uterus ablation. I explained to the patient how to adjust temperature in humidifier and in the heated tube. Pressure in CPAP unit was adjusted to the level of 5 to 11 cm of water. Patient was recommended to start using Creswell gel with nasal pillows. Plan: 1. Continue using PAP equipment every night for the whole night. We will extend trial period for another 90 days. 2. To change air filter at least 1-2 times per month. 3. PAP unit should stay lower then position of the head. 4. Advised patient to remove all remaining water from humidifier canister daily and make it dry after each usage. Refill canister with fresh distilled water before each usage. 5. Sleep hygiene with regular time in bed for at least 8 hours. 6. Precautions related to driving. No driving if feel any sleepiness. 7. I will maintain prescription for PAP supplies including mask, tube, filters. 8. Follow up visit in 2 months or earlier if patient has any problems. 9. Watching weight. Thank you very much for allowing me to participate in the management of your patient. Angel Ambrose MD, PhD, FAASM. Diplomat of [place] [employer], Sleep Medicine Board by [place] [employer] [facility] [place] Objective - Vital Signs Vital Signs: Intake & Output 08/08/24 08/09/24 08/09/24 18:59 06:59 18:59 Weight 83.461 kg Home Medications: Home Medications Medication Instructions Recorded Confirmed Type DULoxetine HCL [Cymbalta] 30 mg PO BID 12/10/16 05/10/24 History Magnesium 250 mg PO DAILY 11/03/23 05/10/24 History Vit No.179/Iron/Folic 1 each PO DAILY 11/03/23 05/10/24 History [ Tablet] Turmeric Root Extract [Turmeric] 500 mg PO DAILY 11/03/23 05/10/24 History HYDROcodone/APAP 5-325MG [Manteno 1 tab PO Q6HR PRN 3 Days #12 tab 05/06/24 05/10/24 Rx 5-325] HYDROcodone/APAP 5-325MG [Manteno 1 tab PO Q6HR PRN #28 tab 05/10/24 Rx 5-325]
== END ==
LOC: 3 N SLEEP 14:20
PROVIDERS: ATTEND Internal Medicine
DX: G47.33 Obstructive sleep apnea (adult) (pediatric) (principal); I10 Essential (primary) hypertension; M53.9 Dorsopathy, unspecified; Z98.890 Other specified postprocedural states; Z90.89 Acquired absence of other organs; Z99.89 Dependence on other enabling machines and devices; Z88.0 Allergy status to penicillin; Z87.891 Personal history of nicotine dependence
CPT/HCPCS: 99212